=== PATIENT | male | born 1995 | race Caucasian/White ===

== ENCOUNTER 2018-12-24 07:27 | Day surgery (SDC) | payer BC, OTHER ==
[2018-12-24] MEDS ORDERED: ONDANSETRON HCL INJ/PF 4 MG/2 ML SDV ONE (07:43)
[2018-12-24] MEDS ORDERED: NALOXONE HCL INJ/PF 0.4 MG/1 ML SDV ONE (07:43)
[2018-12-24] MEDS ORDERED: DIPHENHYDRAMINE HCL 50 MG/ML VIAL ONE (07:43)
[2018-12-24] MEDS ORDERED: EPINEPHRINE INJ 1 MG/10 ML DISP.SYRIN ONE (07:44)
[2018-12-24] MEDS ORDERED: FLUMAZENIL INJ 0.5 MG/5 ML VIAL ONE (07:44)
[2018-12-24] MEDS ORDERED: GLUCAGON,HUMAN RECOMB 1 MG INJ ONE (07:44)
[2018-12-24] MEDS: MIDAZOLAM 2 MG/2 ML INJ ONE ×3 (08:10→08:18)
[2018-12-24] MEDS: FENTANYL CITRATE INJ/PF 100 MCG/2 ML AMPUL ONE ×2 (08:12→08:16)
--- NOTE | 2018-12-24 08:48 | Operative Report ---
Operative Report DATE OF SURGERY: 12/24/18 Operative Report: The risks, benefits and alternatives of the procedure including the risk of bleeding, perforation requiring surgery have been explained to the patient in detail and informed consent has been obtained. Patient is taken back to the endoscopy suite and placed in the left, lateral decubital position. Timeout was called. Conscious sedation medications are provided. Rectal examination is done which did not reveal any masses, tears or fissures. A CF Olympus 160 videoscope is introduced into the patient's rectum. The scope was then carefully advanced all the way to the cecum. The patient does have obvious inflammation from 0-30 cm indicated of a flare of ulcerative colitis. From that point on until the cecum the mucosa was completely normal. There is no erythema, inflammation, erosions noted. Cecum was identified by the usual anatomical landmarks of the ileocecal valve as well as the appendiceal office. Photodocumentation is obtained. The scope was then sequentially pulled back via the various segments of the colon including the ascending colon, hepatic flexure, transverse colon, splenic flexure, descending colon and finally into the rectosigmoid portions of the colon. Retroflexion maneuver is performed. PREOPERATIVE DIAGNOSIS: Ulcerative colitis POSTOPERATIVE DIAGNOSIS: Inflammation noted from 0-30 cm status post biopsy OPERATION: Colonoscopy with biopsy SURGEON: SUE MORRIS ANESTHESIA: Moderate Sedation - 25 mg of Benadryl, 5 mg of Versed, 75 mcg of fentanyl. TISSUE REMOVED OR ALTERED: As noted above. COMPLICATIONS: None. ESTIMATED BLOOD LOSS: None. INTRAOPERATIVE FINDINGS: As noted above. PROCEDURE: Patient tolerated the procedure well. No immediate postprocedure complications are noted. Patient discharged in good condition. Discharge date 12/24/2018. Discharge diet: Regular. Discharge activity: Regular. 2-3-week follow-up to discuss findings. Patient is instructed to call the office or proceed to the emergency room should there be any further problems or questions. Wait on the pathology. We consider treatment to Abe.
[2018-12-24 09:24] VITALS: BP 104/71
== END 2018-12-24 09:25 | disposition home or self-care (01) ==
LOC: END 07:27
PROVIDERS: ATTEND Internal Medicine Gastroenterology
DX: K51.90 Ulcerative colitis, unspecified, without complications (principal); Z79.899 Other long term (current) drug therapy
CPT/HCPCS: 45380; 88305 ×2; J2250; J1200; J3010; J0171; J1610; J2310; J2405; J3490